=== PATIENT | male | born 1990 | race Caucasian/White ===

== ENCOUNTER 2019-01-26 08:40 | Outpatient (CLI) | payer OTHER ==
--- NOTE | 2019-01-27 01:50 | Ultrasound Report ---
Reason: NEOPLASM OF MALE GENITAL ORGAN Procedure Date: 01/26/2019 Accession Number: [id number] / [id number] Procedure: US - Testicle CPT Code: Final Report FULL RESULT: EXAM: SCROTAL ULTRASOUND EXAM DATE: 01/26/2019 09:35 AM. CLINICAL HISTORY: NEOPLASM OF MALE GENITAL ORGAN. COMPARISON: None. TECHNIQUE: Real-time scanning was performed with static images obtained. Color-flow images were utilized. FINDINGS: Right: Testis: 5.0 x 2.6 x 3.3 cm. Normal size and echotexture. No mass or abnormal blood flow. Occasional scattered microcalcifications. Small appendix testes noted. Epididymis: 1.4 x 1.1 cm. Normal size and echotexture. No mass or abnormal blood flow. Simple appearing epididymal head cysts measuring up to 8 mm. Hydrocele: Small Varicocele: None. Left: Testis: 5.0 x 2.8 x 3.3 cm. Normal size and echotexture. No mass, calcification, or abnormal blood flow. Appendix testis is noted. Epididymis: 3.0 x 1.0 cm. Normal size and echotexture. No mass or abnormal blood flow. Simple appearing exophytic 3 mm cyst. Hydrocele: Small. Varicocele: None. IMPRESSION: No acute sonographic abnormalities. No torsion, orchitis, or epididymitis. Small bilateral hydroceles. Bilateral simple epididymal head cysts. [facility]
== END 2019-01-26 08:41 | disposition home or self-care (01) ==
LOC: DI 08:40
PROVIDERS: ATTEND Internal Medicine
DX: D40.9 Neoplasm of uncertain behavior of male genital organ, unspecified (principal); N43.3 Hydrocele, unspecified; N50.3 Cyst of epididymis
CPT/HCPCS: 76870